=== PATIENT | female | born 1940 | race Caucasian/White ===

== ENCOUNTER 2024-05-09 06:53 | Emergency (ER) | payer OTHER ==
[2024-05-09 07:47] LABS: Absolute Eosinophils 0.1 K/uL (0-0.5); Absolute Lymphocytes (CBC) 1.3 K/uL (0.7-4.9); Absolute Monocytes 0.7 K/uL (0.1-1.3); Absolute Neutrophil 8.6 K/uL (1.8-8.0); Basophils % 0.4 % (0-1.3); Eosinophils % 0.5 % (0-4.4); Hematocrit 44.6 % (36.0-45.0); Hemoglobin 14.7 g/dL (12.0-15.0); Lymphocytes % 12.5 % (15.3-44.8); MCH 31.3 pg (27.0-35.0); MCHC 32.9 g/dL (32.0-36.0); MPV 9.9 fL (7.6-11.3); Monocytes % 6.2 % (3.3-12.3); Neutrophils % 80.4 % (41.7-73.7); Platelets 278 thou/uL (152-406); RBC Red Blood Cell Count 4.69 M/uL (3.86-4.86); Red Cell Distribution Width 13.7 % (12.1-15.2)
[2024-05-09 07:49] LABS: PT Prothrombin Time 15.8 SECONDS (9.4-12.5); Protime INR 1.43
[2024-05-09 08:02] LABS: Anion Gap 9.6 mEq/L (5.0-15.0); Potassium 3.6 mEq/L (3.5-5.1)
--- NOTE | 2024-05-09 08:30 | RAD REPORT ---
EXAMINATION: ONE VIEW CHEST XR CLINICAL INDICATION: Female, 83 years old.,PALPITATIONS TECHNIQUE: Frontal chest projection is submitted. Examination is limited by patient positioning and t echnique. COMPARISON: 09/07/2023 FINDINGS: The lungs are mildly hyperinflated and clear. No pneumothorax or sizable effusion. The heart is norm al in size. Mediastinal contours are unremarkable. IMPRESSION: No acute intrathoracic abnormalities.
--- NOTE | 2024-05-09 09:30 | EDPHYS ---
Physician Documentation [facility] Name: Triny Lincoln Age: 83 yrs Sex: Female : 1940 Arrival Date: 05/09/2024 Time: 06:53 Bed 5 Private MD: ED Physician Abebe Shukla HPI: 05/09 07:41 This 83 yrs old Female presents to ER via Ambulatory with complaints of High heart rate.rn 07:41 The patient presents with a history of heart racing. Context: The symptoms occur at rn rest. Onset: The symptoms/episode began/occurred at an unknown time. Duration: The patient or guardian reports multiple episodes. Modifying factors: The symptoms are aggravated by Exertion The symptoms are alleviated by nothing. Severity of symptoms: At their worst the symptoms were mild in the emergency department the symptoms are unchanged. The patient has experienced a previous episode. Patient reports a recent admission and diagnosis of atrial fibrillation. Is supposed to be taking Eliquis, metoprolol and amiodarone but she read the side effect profile of amiodarone so decided not to take it. Presents today for intermittent palpitations and generalized malaise. No fever or chills. No chest pain or shortness of breath. Does not feel as bad as she did when she required admission last week. Historical: - Allergies: 07:07 No Known Allergies; iw - Home Meds: 07:27 amiodarone 200 mg Oral tablet daily [Active]; Eliquis 5 mg oral tablet 2 times per day iw [Active]; metoprolol succinate 50 mg oral Tablet, Extended Release 24 hr daily [Active]; omeprazole 40 mg Oral capsule,delayed release (e.c.) daily [Active]; rosuvastatin 5 mg oral tablet daily [Active]; valsartan 40 mg oral tablet 2 times per day [Active]; - Immunization history:: Adult Immunizations up to date. - Infectious Disease History:: Denies. - Family history:: not pertinent. - Hospitalizations: : Patient was recently seen at. - Social history:: Smoking status: Patient denies any tobacco usage or history of. ROS: 07:41 Constitutional: Negative for fever, chills, and weight loss, Neck: Negative for injury, rn pain, and swelling, Cardiovascular: Negative for chest pain, and edema, Respiratory: Negative for shortness of breath, cough, wheezing, and pleuritic chest pain, Abdomen/GI: Negative for abdominal pain, nausea, vomiting, diarrhea, and constipation, MS/Extremity: Negative for injury and deformity, Skin: Negative for injury, rash, and discoloration, Neuro: Negative for headache, weakness, numbness, tingling, and seizure, Exam: 07:41 Constitutional: This is a well developed, well nourished patient who is awake, alert, rn and in no acute distress. Ambulatory to room without difficulty or assistance Cardiovascular: Regular rate and rhythm. No pulse deficits. Respiratory: Speaking full sentences, unlabored. No increased work of breathing, no retractions or nasal flaring. Abdomen/GI: Soft, non-tender Neuro: Awake and alert, GCS 15, oriented to person, place, time, and situation. Cranial nerves II-XII grossly intact. Motor strength 5/5 in all extremities. Sensory grossly intact. Cerebellar exam normal. Normal gait. 09:31 ECG was reviewed by the Attending Physician. rn Vital Signs: 07:05 BP 147 / 83; Pulse 109; Resp 18; Pulse Ox 97% on R/A; iw 08:26 BP 107 / 60; Pulse 89; Resp 18; Pulse Ox 96% on R/A; ap3 09:36 BP 117 / 59; Pulse 82; Resp 15; Pulse Ox 99% ; ko1 MDM: 06:58 Medical Screening Exam initiated rn 09:29 Differential diagnosis: arrythmia, dehydration, stress disorder. Differential rn diagnosis: Anxiety. Data reviewed: vital signs, nurses notes. Counseling: I had a detailed discussion with the patient and/or guardian regarding the historical points, exam findings, and any diagnostic results supporting the discharge/admit diagnosis, lab results, radiology results, the need for outpatient follow up, to return to the emergency department if symptoms worsen or persist or if there are any questions or concerns that arise at home. Response to treatment: the patient's symptoms have mildly improved after treatment, and as a result, I will discharge patient. Special discussion: I discussed with the patient/guardian in detail that at this point there is no indication for admission to the hospital. It is understood, however, that if the symptoms persist or worsen the patient needs to return immediately for re-evaluation. ED course: No acute findings on workup, is normal sinus rhythm. No arrhythmia here. Spoke with her PCP Dr. 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 05/09 07:09 Order name: Basic Metabolic Panel; Complete Time: 08:07 rn 05/09 07:09 Order name: CBC with Diff; Complete Time: 08:07 rn 05/09 07:09 Order name: NT PRO-BNP; Complete Time: 08:07 rn 05/09 07:09 Order name: PT-INR; Complete Time: 08:07 rn 05/09 07:09 Order name: Troponin HS; Complete Time: 08:07 rn 05/09 07:09 Order name: XRAY Chest (1 view); Complete Time: 09:23 rn 05/09 07:09 Order name: EKG; Complete Time: 07:09 rn 05/09 07:09 Order name: Cardiac monitoring; Complete Time: 07:20 rn 05/09 07:09 Order name: EKG - Nurse/Tech; Complete Time: 07:24 rn 05/09 07:09 Order name: IV Saline Lock; Complete Time: 07:38 rn 05/09 07:09 Order name: Labs collected and sent; Complete Time: 07:38 rn 05/09 07:09 Order name: O2 Per Protocol; Complete Time: 07:20 rn 05/09 07:09 Order name: O2 Sat Monitoring; Complete Time: 07:20 rn EC:31 Rate is 97 beats/min. Rhythm is regular. QRS [place] is Normal. [place] interval is normal. QRS rn interval is normal. QT interval is normal. No Q waves. T waves are Normal. No ST changes noted. Clinical impression: Normal ECG. Interpreted by me. Reviewed by me. Administered Medications: No medications were administered Disposition Summary: 05/09/24 09:30 Discharge Ordered Notes: Location: Home rn Problem: new rn Symptoms: have improved rn Condition: Stable rn Diagnosis - Palpitations rn Followup: rn - With: Private Physician - When: As needed - Reason: Recheck today's complaints, Re-evaluation by your physician Discharge Instructions: - Discharge Summary Sheet rn - Palpitations rn Forms: - Medication Reconciliation Form rn - Antibiotic furnishings conservator - Prescription Opioid Use rn - Patient Portal Instructions rn - Leadership Thank You Letter rn Signatures: Dispatcher [employer] Surekha Spears RN RN iw Nieto, Roman, MD MD rn Oliver, Kathy, RN RN ko1 Corrections: (The following items were deleted from the chart) 07:42 07:41 Patient reports a recent admission and diagnosis of atrial fibrillation. Is rn supposed to be taking Eliquis, metoprolol and amiodarone but she read the side effect profile of amiodarone so decided not to take it. Presents today for intermittent palpitations and generalized malaise. No fever or chills. No chest pain or shortness of breath.. rn
--- NOTE | 2024-05-09 09:30 | ER ---
Nurse's Notes [facility] Name: Triny Lincoln Age: 83 yrs Sex: Female : 1940 Arrival Date: 05/09/2024 Time: 06:53 Bed 5 Private MD: Diagnosis: Palpitations Presentation: 05/09 07:05 Chief complaint: Patient states: was seen at ER in [place] on , diagnosed iw with new onset afib, had some med changes. This morning her heart rate was high. Coronavirus screen: At this time, the client does not indicate any symptoms associated with coronavirus-19. Ebola Screen: No symptoms or risks identified at this time. Initial Sepsis Screen: Does the patient meet any 2 criteria? No. Patient's initial sepsis screen is negative. Does the patient have a suspected source of infection? No. Patient's initial sepsis screen is negative. Risk Assessment: Do you want to hurt yourself or someone else? Patient reports no desire to harm self or others. Onset of symptoms was May 09, 2024. 07:05 Method Of Arrival: Ambulatory iw 07:05 Acuity: BHASKAR 3 iw Historical: - Allergies: 07:07 No Known Allergies; iw - Home Meds: 07:27 amiodarone 200 mg Oral tablet daily [Active]; Eliquis 5 mg oral tablet 2 times per day iw [Active]; metoprolol succinate 50 mg oral Tablet, Extended Release 24 hr daily [Active]; omeprazole 40 mg Oral capsule,delayed release (e.c.) daily [Active]; rosuvastatin 5 mg oral tablet daily [Active]; valsartan 40 mg oral tablet 2 times per day [Active]; - Immunization history:: Adult Immunizations up to date. - Infectious Disease History:: Denies. - Family history:: not pertinent. - Hospitalizations: : Patient was recently seen at. - Social history:: Smoking status: Patient denies any tobacco usage or history of. Screenin:36 [facility] ED Fall Risk Assessment (Adult) History of falling in the last 3 months, ko1 including since admission No falls in past 3 months (0 pts) Confusion or Disorientation No (0 pts) Intoxicated or Sedated No (0 pts) Impaired Gait No (0 pts) Mobility Assist Device Used No (0 pt) Altered Elimination No (0 pt) Score/Fall Risk Level 0 - 2 = Low Risk Oriented to surroundings, Maintained a safe environment, Educated pt \T\ family on fall prevention, incl call for assistance when getting out of bed, Assessed \T\ reinforced patient's understanding of fall precautions, Hourly rounding (assess needs \T\ fall precautionary measures) done. Abuse screen: Denies threats or abuse. Denies injuries from another. Nutritional screening: No deficits noted. Tuberculosis screening: No symptoms or risk factors identified. Assessment: 09:36 General: Appears in no apparent distress. Behavior is cooperative, appropriate for age, ko1 anxious. Pain: Denies pain. Neuro: No deficits noted. Cardiovascular: Reports palpitations. Respiratory: No deficits noted. GI: No deficits noted. : No deficits noted. EENT: No deficits noted. Derm: No deficits noted. Musculoskeletal: No deficits noted. Vital Signs: 07:05 BP 147 / 83; Pulse 109; Resp 18; Pulse Ox 97% on R/A; iw 08:26 BP 107 / 60; Pulse 89; Resp 18; Pulse Ox 96% on R/A; ap3 09:36 BP 117 / 59; Pulse 82; Resp 15; Pulse Ox 99% ; ko1 ED Course: 06:56 Patient arrived in ED. gm2 06:58 Abebe Shukla MD is Attending Physician. rn 07:07 Triage completed. iw 07:20 Mei Harp, RN is Primary Nurse. ap3 07:20 Patient has correct armband on for positive identification. Placed in gown. Bed in low ap3 position. Call light in reach. Side rails up X 1. Adult w/ patient. Client placed on continuous cardiac and pulse oximetry monitoring. NIBP monitoring applied. quality assurance monitor body on. Pulse ox on. NIBP on. 07:24 Arm band placed on. iw 07:25 EKG done, by ED staff, reviewed by Abebe Shukla MD. em1 07:38 Initial lab(s) drawn, by me, sent to lab. Inserted saline lock: 20 gauge in left wrist, em1 using aseptic technique. Blood collected. Flushed with 10 mL NS. 07:46 XRAY Chest (1 view) In Process Unspecified. EDMS 09:03 Patient requests rest room assistance. ko1 09:03 Assisted to bathroom. ko1 09:33 Provided Education on: labs. ko1 09:33 No provider procedures requiring assistance completed. IV discontinued, intact, ko1 bleeding controlled, No redness/swelling at site. Pressure dressing applied. Administered Medications: No medications were administered Medication: 09:36 VIS not applicable for this client. ko1 Outcome: 09:30 Discharge ordered by . rn 09:37 Discharged to home ambulatory, with family, koSteff 09:37 Condition: stable 09:37 Discharge instructions given to patient, family, Instructed on discharge instructions, follow up and referral plans. Demonstrated understanding of instructions, follow-up care, 09:42 Patient left the ED. ko1 Signatures: Dispatcher [employer] EDMS Surekha Panchal RN RN Abebe Leary MD MD rn Martinez, Eric em1 Prokisch, Amanda, RN RN ap3 Alis Shearer RN RN ko1 Lucero Tran gm2
[2024-05-09 14:19] VITALS: BP 117/59; O2SAT 99
== END 2024-05-09 09:42 | disposition home or self-care (01) ==
LOC: ER 06:53
DX: R00.2 Palpitations (principal); R53.81 Other malaise; Z79.01 Long term (current) use of anticoagulants
CPT/HCPCS: 36415; 71045; 80048; 83880; 84484; 85025; 85610; 99284